=== PATIENT | female | born 1985 | race African-American/Black ===

== ENCOUNTER 2020-02-11 09:32 | Outpatient (CLI) | payer OTHER | END 2020-02-11 09:33 | disposition home or self-care (01) | LOC: LAB.N 09:32 | PROVIDERS: ATTEND Obstetrics & Gynecology | DX: Z13.29 Encounter for screening for other suspected endocrine disorder (principal) | CPT/HCPCS: 36415; 84443 ==

== ENCOUNTER 2020-02-19 15:19 | Outpatient (CLI) | payer OTHER ==
--- NOTE | 2020-02-19 16:48 | Ultrasound Report ---
PROCEDURE: Pelvic w/Transvaginal INDICATIONS: IUD CHECK TECHNIQUE: Real-time scanning was performed of the pelvic organs, with image documentation. Additional endovagi nal scanning was necessary due to incomplete visualization of the adnexal and endometrial structures by transabdominal scanning. COMPARISON: None. FINDINGS: Transabdominal scanning: Limited scanning through the kidneys shows no hydronephrosis. No pathologi c free abdominal or pelvic fluid. Endovaginal scanning: Uterus: Uterus is normal in size at 8.4 x 4.4 x 5.5 cm. The endometrium measures 12 mm in combined thickness. Within the anterior aspect of the lower uterine segment there is an 8 x 6 x 7 mm focus of heterogeneous echogenicity. Within the fundal anterior portion there is a similar focus measuring 8 x 9 x 7 mm. Nabothian cyst is noted. There is no visualized intrauterine device. Ovaries: Right ovary measures 37 x 18 x 21 mm. Left ovary measures 31 x 21 x 18 mm. Less than 12 fol licles are noted bilaterally. Ovaries demonstrate vascular flow. IMPRESSION: Foci of heterogeneous echogenicity as above suggestive of small fibroids. Reviewed by: Elida Villarreal MD on 02/19/2020 4:47 PM PST Approved by: Elida Villarreal MD on 02/19/2020 4:47 PM PST Station ID: [id number]
== END 2020-02-19 15:20 | disposition home or self-care (01) ==
LOC: DI 15:19
PROVIDERS: ATTEND Obstetrics & Gynecology
DX: R93.89 Abnormal findings on diagnostic imaging of other specified body structures (principal)
CPT/HCPCS: 76830; 76856

== ENCOUNTER 2020-02-26 17:08 | Outpatient (CLI) | payer OTHER ==
[2020-02-26 18:54] LABS: BILIRUBIN,URINE NEGATIVE (NEGATIVE); GLUCOSE, URINE (UA) NEGATIVE (NEGATIVE); KETONES,URINE (UA) NEGATIVE (NEGATIVE); LEUKOCYTE ESTERASE, URINE NEGATIVE (NEGATIVE); NITRITE,URINE NEGATIVE (NEGATIVE); OCCULT BLOOD,URINE NEGATIVE (NEGATIVE); PROTEIN,URINE NEGATIVE (NEGATIVE); UROBILINOGEN,URINE 0.2 (NORMAL) E.U./dL (NORMAL)
[2020-02-26 19:37] LABS: BACTERIA,URINE None Seen /HPF (None Seen); CLARITY,URINE CLEAR (CLEAR); RBC,URINE 0-5 /HPF (0-5); SQUAMOUS EPITHELIAL CELL,UR FEW Squamous (<= Few)
== END 2020-02-26 23:59 | disposition home or self-care (01) ==
LOC: LAB.R 17:08
PROVIDERS: ATTEND Nurse Practitioner Obstetrics & Gynecology
DX: Z32.01 Encounter for pregnancy test, result positive (principal)
CPT/HCPCS: 81001; 87086

== ENCOUNTER 2020-03-06 09:25 | Outpatient (CLI) | payer OTHER | END 2020-03-06 09:26 | disposition home or self-care (01) | LOC: LAB.N 09:25 | PROVIDERS: ATTEND Nurse Practitioner Obstetrics & Gynecology | DX: Z32.01 Encounter for pregnancy test, result positive (principal) | CPT/HCPCS: 36415; 84702 ==

== ENCOUNTER 2020-03-09 09:16 | Outpatient (CLI) | payer OTHER | END 2020-03-09 09:17 | disposition home or self-care (01) | LOC: LAB.N 09:16 | PROVIDERS: ATTEND Nurse Practitioner Obstetrics & Gynecology | DX: Z32.01 Encounter for pregnancy test, result positive (principal) | CPT/HCPCS: 36415; 84702; 84703 ==

== ENCOUNTER 2020-03-11 09:12 | Outpatient (CLI) | payer OTHER | END 2020-03-11 09:13 | disposition home or self-care (01) | LOC: LAB.N 09:12 | PROVIDERS: ATTEND Obstetrics & Gynecology | DX: Z32.01 Encounter for pregnancy test, result positive (principal) | CPT/HCPCS: 36415; 84702 ==

== ENCOUNTER 2020-03-14 16:28 | Outpatient (CLI) | payer OTHER ==
--- NOTE | 2020-03-14 20:33 | Ultrasound Report ---
PROCEDURE: OB First Trimester w/TV INDICATIONS: POSITIVE TEST OUTSIDE/PRIOR DATING DATA: Last menstrual period (LMP): 01/23/2020. LMP-based estimated date of delivery (MARY): 10/29/2020. First dating scan (date and location): 03/14/2020. Estimated date of delivery (MARY) from first dating scan: 10/28/2020. TECHNIQUE: Real-time scanning was performed of the fetus and maternal pelvic organs, with image documentation. Endovaginal scanning was also performed to better visualize the fetus and maternal ovaries. COMPARISON: Pelvic ultrasound 02/19/2020. FINDINGS: Embryo: [place]-rump length measuring 1.2 cm corresponding to 7 weeks 3 days gestational age. he art rate 161 BPM. A yolk sac is seen. No perigestational hemorrhage. Measurement variability in dating: +/- 4 weeks by LMP, +/- 7 days by mean sac diameter (use before 6 weeks gestation if crown-rump length not able to be measured), +/- 5 days by crown-rump length (6-12 weeks gestation). Maternal organs: Ovaries within normal limits. Right corpus luteum measuring 1.9 cm. Cervix is close d. Small cyst in the lower uterine segment anteriorly or cervix measuring 1.1 cm, similar the prior exam and possibly a nabothian cyst or fibroid. Trace fluid in the pelvic cul-de-sac. Limited images t hrough the kidneys demonstrate no hydronephrosis. IMPRESSION: 1. [place] living intrauterine at 7 weeks 3 days based on today's ultrasound crown-rump l ength. heart rate 161 bpm. 2. No perigestational hemorrhage. Reviewed by: Chuck Shearer MD on 03/14/2020 7:32 PM [facility] Approved by: Chuck Shearer MD on 03/14/2020 7:32 PM [facility] Station ID: [id number]
== END 2020-03-14 16:29 | disposition home or self-care (01) ==
LOC: DI 16:28
PROVIDERS: ATTEND Nurse Practitioner Obstetrics & Gynecology
DX: Z32.01 Encounter for pregnancy test, result positive (principal)

== ENCOUNTER 2020-03-23 08:00 | Outpatient (CLI) | payer OTHER ==
[2020-03-24 00:34] LABS: TRICHOMONAS VAGINALIS DNA NEGATIVE (NEGATIVE)
== END 2020-03-23 23:59 | disposition home or self-care (01) ==
LOC: LAB.WC 08:00
PROVIDERS: ATTEND Obstetrics & Gynecology
DX: Z36.89 Encounter for other specified antenatal screening (principal)
CPT/HCPCS: 87491; 87591; 87661

== ENCOUNTER 2020-03-23 08:00 | Outpatient (CLI) | payer OTHER ==
[2020-03-23 16:40] LABS: MUDS CUTOFF CONCENTRATIONS CUTOFF CONC BELOW:
[2020-03-23 17:01] LABS: AMPHETAMINE SCREEN,URINE NEGATIVE (NEGATIVE); BARBITURATE SCREEN,UR NEGATIVE (NEGATIVE); BENZODIAZEPINES SCREEN, URINE NEGATIVE (NEGATIVE); COCAINE SCREEN URINE NEGATIVE (NEGATIVE); METHADONE SCREEN, URINE NEGATIVE (NEGATIVE); METHAMPHETAMINES SCREEN, URINE NEGATIVE (NEGATIVE); OPIATE SCREEN, URINE NEGATIVE (NEGATIVE); OXYCODONE SCREEN, URINE NEGATIVE (NEGATIVE); PROPOXYPHENE SCREEN, URINE NEGATIVE (NEGATIVE); THC CANNABINOID SCREEN, URINE NEGATIVE (NEGATIVE); TRICYCLIC ANTIDEPRESSANT,URINE NEGATIVE (NEGATIVE)
== END 2020-03-23 23:59 | disposition home or self-care (01) ==
LOC: LAB.WC 08:00
PROVIDERS: ATTEND Obstetrics & Gynecology
DX: Z36.89 Encounter for other specified antenatal screening (principal)
CPT/HCPCS: 80306

== ENCOUNTER 2020-04-06 09:32 | Outpatient (CLI) | payer OTHER | END 2020-04-06 09:33 | disposition home or self-care (01) | LOC: LAB 09:32 | PROVIDERS: ATTEND Obstetrics & Gynecology | DX: Z01.89 Encounter for other specified special examinations (principal) | CPT/HCPCS: 36415 ==

== ENCOUNTER 2020-05-11 09:19 | Outpatient (CLI) | payer OTHER ==
[2020-05-11 12:07] LABS: BASOPHILS # (AUTO) 0.1 10^3/uL (0.0-0.1); BASOPHILS % (AUTO) 0.5 %; EOSINOPHILS # (AUTO) 0.2 10^3/uL (0.0-0.7); EOSINOPHILS % (AUTO) 1.2 %; HGB - HEMOGLOBIN 13.1 g/dL (12.0-16.0); LYMPHOCYTES % (AUTO) 16.6 %; MEAN CORPUSCULAR HEMOGLOBIN 34.2 pg (27.0-31.0); MEAN CORPUSCULAR HGB CONC 34.2 g/dL (32.0-36.0); MEAN PLATELET VOLUME 10.7 fL (7.9-10.8); MONOCYTES # (AUTO) 0.7 10^3/uL (0.0-1.0); MONOCYTES % (AUTO) 5.5 %; NEUTROPHILS % (AUTO) 74.7 %; PLT - PLATELET COUNT 264 10^3/uL (130-450); RED BLOOD COUNT 3.83 10^6/uL (4.20-5.40); RED CELL DISTRIBUTION WIDTH 12.6 % (12.0-15.0)
[2020-05-12 11:47] LABS: HEPATITIS B SURFACE ANTIGEN NON-REACTIVE (NON-REACTIVE); HEPATITIS C ANTIBODY NON-REACTIVE (NON-REACTIVE)
[2020-05-12 14:22] LABS: HIV AG/AB 4TH GEN NON-REACTIVE (NON-REACTIVE)
== END 2020-05-11 09:20 | disposition home or self-care (01) ==
LOC: LAB.N 09:19
PROVIDERS: ATTEND Obstetrics & Gynecology
DX: O09.519 Supervision of elderly primigravida, unspecified trimester (principal); Z36.89 Encounter for other specified antenatal screening; Z3A.00 Weeks of gestation of pregnancy not specified
CPT/HCPCS: 36415; 81599; 82105; 85025; 86592; 86762; 86787; 86803; 86850; 86900; 86901; 87340; 87389

== ENCOUNTER 2020-06-10 13:46 | Outpatient (CLI) | payer OTHER ==
--- NOTE | 2020-06-10 17:02 | Ultrasound Report ---
PROCEDURE: OB Detailed Eval INDICATIONS: SCREENING OUTSIDE/PRIOR DATING DATA: Last menstrual period (LMP): 01/23/2020. LMP-based estimated date of delivery (MARY): 10/29/2020. First dating scan (date and location): 03/14/2020. Estimated date of delivery (MARY) from first dating scan: 12/29/2020. TECHNIQUE: Real-time scanning was performed of the fetus, with image documentation and biometric measurements. COMPARISON: OB ultrasound 03/14/2020 FINDINGS: General: A single living intrauterine gestation is present. Presentation: Variable Placenta: Placental position is anterior, with appearance of mild previa.. Amniotic fluid index: 18.7 cm, within normal limits for gestational age. Largest pocket measures 6 cm. heart rate: 145 beats per minute. Maternal cervical canal: 4.9 cm long; normal length is 2.5 cm or more. biometrics: Biparietal diameter: 4.8 cm 20 weeks 4 days Head circumference: 17.5 cm 20 weeks 0 days Abdominal circumference: 14.9 cm 20 weeks 1 day Femur length: 3.2 cm 19 weeks 6 days Estimated gestational age from initial scan: 19 weeks 6 days Composite gestational age from present scan: 19 weeks 6 days Estimated weight and percentile: 327 g 55th percentile Measurement variability in biometric dating: +/- 10 days from 12-20 weeks gestation, +/- 2 weeks from 20-30 weeks gestation, +/- 3 weeks at 30 weeks gestation or later. Anatomic survey: Neuro: Ventricles are normal at less than 10 mm. Cisterna magna is normal at 3-11 mm. Cerebellum i s normal in size and morphology. Nuchal skin fold: Normal at less than 6 mm between 14 and 20 weeks gestational age. Face: Nose and lips, facial profile are normal. Spine: No evidence for spina bifida. Heart: 4-chambered heart is present, with normal ventricular outflow tracts. Diaphragm: Diaphragm is intact. Stomach: Left-sided stomach is present. Kidneys: No hydronephrosis. Normal is less than 5 mm in 2nd trimester, less than 7 mm in 3rd trimester. Cord: 3 vessel cord has orthotopic insertion. Bladder: Normal in size. Extremities: All 4 extremities are visualized. IMPRESSION: 1. Single live intrauterine with ultrasound gestational age of 19 weeks 6 days. 2. There is an appearance of previa noted of the anterior placenta. However, evaluation is somewhat l imited secondary to transverse lie of the fetus. Short interval imaging follow-up is recommended for further evaluation. Reviewed by: Elida Villarreal MD on 06/10/2020 5:01 PM PST Approved by: Elida Villarreal MD on 06/10/2020 5:01 PM [facility] Station ID: [id number]
== END 2020-06-10 13:47 | disposition home or self-care (01) ==
LOC: DI 13:46
PROVIDERS: ATTEND Obstetrics & Gynecology
DX: Z36.89 Encounter for other specified antenatal screening (principal)

== ENCOUNTER 2020-07-09 09:34 | Outpatient (CLI) | payer OTHER ==
--- NOTE | 2020-07-09 12:38 | Ultrasound Report ---
PROCEDURE: OB F/U or Repeat INDICATIONS: LOW LYING PLACENTA OUTSIDE/PRIOR DATING DATA: Last menstrual period (LMP): 01/23/2020. LMP-based estimated date of delivery (MARY): 10/29/2020. First dating scan (date and location): 03/14/2020. Estimated date of delivery (MARY) from first dating scan: 10/28/2020. Established MARY per provider 10/29/2020 TECHNIQUE: Real-time scanning was performed of the fetus, with image documentation and biometric measurements. Endovaginal scanning: Not performed COMPARISON: 03/14/2020, 06/10/2020 FINDINGS: General: A single living intrauterine gestation is present. Presentation: Vertex Placenta: Placental position is anterior, without previa. Placental edge is 4.8 cm from the interna l cervical os. Amniotic fluid index: 15.7 cm, normal for gestational age. Deepest pocket is 5.0 cm. heart rate: 160 beats per minute. Maternal cervical canal: 3.6 cm long; normal length is 2.5 cm or more. IMPRESSION: 1. Single living intrauterine . 2. Anterior placenta without previa. 3. Normal amniotic fluid volume and closed cervix. Reviewed by: Rizwana Camara MD on 07/09/2020 11:37 AM [facility] Approved by: Rizwana Camara MD on 07/09/2020 11:37 AM [facility] Station ID: [id number]
== END 2020-07-09 09:35 | disposition home or self-care (01) ==
LOC: DI 09:34
PROVIDERS: ATTEND Obstetrics & Gynecology
DX: O44.00 Complete placenta previa NOS or without hemorrhage, unspecified trimester (principal); Z3A.00 Weeks of gestation of pregnancy not specified

== ENCOUNTER 2020-08-06 10:04 | Outpatient (CLI) | payer OTHER ==
[2020-08-06 11:10] LABS: HCT - HEMATOCRIT 35.4 % (37.0-47.0); HGB - HEMOGLOBIN 12.2 g/dL (12.0-16.0); MEAN CORPUSCULAR HGB CONC 34.5 g/dL (32.0-36.0); MEAN CORPUSCULAR VOLUME 101.4 fL (81.0-99.0); MEAN PLATELET VOLUME 9.7 fL (7.9-10.8); RED BLOOD COUNT 3.49 10^6/uL (4.20-5.40); RED CELL DISTRIBUTION WIDTH 12.4 % (12.0-15.0); WHITE BLOOD COUNT 14.4 x10^3/uL (4.8-10.8)
== END 2020-08-06 10:05 | disposition home or self-care (01) ==
LOC: LAB 10:04
PROVIDERS: ATTEND Obstetrics & Gynecology
DX: Z36.89 Encounter for other specified antenatal screening (principal)
CPT/HCPCS: 36415; 82950; 85027

== ENCOUNTER 2022-01-21 14:25 | Outpatient (CLI) | payer OTHER ==
[2022-01-21 14:46] LABS: BASOPHILS # (AUTO) 0.1 10^3/uL (0.0-0.1); BASOPHILS % (AUTO) 0.5 %; EOSINOPHILS # (AUTO) 0.2 10^3/uL (0.0-0.7); EOSINOPHILS % (AUTO) 1.6 %; HCT - HEMATOCRIT 39.5 % (37.0-47.0); HGB - HEMOGLOBIN 13.1 g/dL (12.0-16.0); LYMPHOCYTES # (AUTO) 3.3 10^3/uL (1.5-3.5); LYMPHOCYTES % (AUTO) 26.9 %; MEAN CORPUSCULAR HEMOGLOBIN 32.6 pg (27.0-31.0); MEAN CORPUSCULAR HGB CONC 33.2 g/dL (32.0-36.0); MEAN CORPUSCULAR VOLUME 98.3 fL (81.0-99.0); MEAN PLATELET VOLUME 9.9 fL (7.9-10.8); MONOCYTES # (AUTO) 0.8 10^3/uL (0.0-1.0); MONOCYTES % (AUTO) 6.2 %; NEUTROPHILS # (AUTO) 7.8 10^3/uL (1.5-6.6); NEUTROPHILS % (AUTO) 64.2 %; PLT - PLATELET COUNT 267 10^3/uL (130-450); RED BLOOD COUNT 4.02 10^6/uL (4.20-5.40); RED CELL DISTRIBUTION WIDTH 12.8 % (12.0-15.0); WHITE BLOOD COUNT 12.1 x10^3/uL (4.8-10.8)
[2022-01-21 15:19] LABS: CLARITY,URINE CLEAR (CLEAR); KETONES,URINE (UA) NEGATIVE (NEGATIVE); LEUKOCYTE ESTERASE, URINE NEGATIVE (NEGATIVE); NITRITE,URINE NEGATIVE (NEGATIVE); OCCULT BLOOD,URINE NEGATIVE (NEGATIVE); PROTEIN,URINE NEGATIVE (NEGATIVE); UROBILINOGEN,URINE 0.2 (NORMAL) E.U./dL (NORMAL)
[2022-01-21 15:20] LABS: BACTERIA,URINE Rare /HPF (None Seen); BILIRUBIN,URINE NEGATIVE (NEGATIVE); GLUCOSE, URINE (UA) NEGATIVE (NEGATIVE); RBC,URINE 0-5 /HPF (0-5); SQUAMOUS EPITHELIAL CELL,UR FEW Squamous (<= Few); WBC,URINE 0-3 /HPF (0-5)
[2022-01-22 03:08] LABS: HBsAG SCREEN Negative (Negative); HCV AB <0.1 s/co ratio (0.0-0.9); HIV SCREEN 4TH GENERATION Non Reactive (Non Reactive)
[2022-01-22 07:08] LABS: RPR Non Reactive (Non Reactive)
[2022-01-22 10:08] LABS: VARICELLA-ZOSTER AB IGG 740 index (Immune >165)
== END 2022-01-21 14:26 | disposition home or self-care (01) ==
LOC: LAB 14:25
PROVIDERS: ATTEND Nurse Practitioner
DX: Z34.80 Encounter for supervision of other normal pregnancy, unspecified trimester (principal)
CPT/HCPCS: 36415; 81001; 85025; 86592; 86762; 86787; 86803; 86850; 86900; 86901; 87086; 87340; 87389

== ENCOUNTER 2022-01-26 09:46 | Outpatient (CLI) | payer OTHER ==
--- NOTE | 2022-01-26 11:01 | Ultrasound Report ---
PROCEDURE: OB First Trimester w/TV INDICATIONS: POSITIVE TEST OUTSIDE/PRIOR DATING DATA: Last menstrual period (LMP): 11/28/2021. LMP-based estimated date of delivery (MARY): 09/16/2022. First dating scan (date and location): 01/26/2022. Estimated date of delivery (MARY) from first dating scan: 09/16/2022. The below data below was generated using the ultrasound MARY of 09/16/2022 TECHNIQUE: Real-time scanning was performed of the fetus and maternal pelvic organs, with image documentation. Endovaginal scanning was also performed to better visualize the fetus and maternal ovaries. COMPARISON: None FINDINGS: Embryo: Early intrauterine with crown-rump length of 0.8 cm, 6 weeks 5 days. Heart rate: No cardiac activity identified. Measurement variability in dating: +/- 4 weeks by LMP, +/- 7 days by mean sac diameter (use before 6 weeks gestation if crown-rump length not able to be measured), +/- 5 days by crown-rump length (6-12 weeks gestation). Maternal organs: Ovaries are within normal limits. IMPRESSION: 1. Very early intrauterine with crown-rump length without a heartbeat. Comment: Recommend correlation with serial beta hCGs and consideration of possible follow-up ultrasou nd in 1 week. Above discussed with MARIANNE Figueroa at the time of dictation on 01/26/2022 at 1058 hours. Reviewed by: Sander Fowler MD on 01/26/2022 11:00 AM PDT Approved by: Sander Fowler MD on 01/26/2022 11:00 AM PDT Station ID: [id number]
== END 2022-01-26 09:47 | disposition home or self-care (01) ==
LOC: DI 09:46
PROVIDERS: ATTEND Nurse Practitioner
DX: Z34.81 Encounter for supervision of other normal pregnancy, first trimester (principal); Z3A.01 Less than 8 weeks gestation of pregnancy

== ENCOUNTER 2022-01-27 11:07 | Outpatient (CLI) | payer OTHER | END 2022-01-27 11:08 | disposition home or self-care (01) | LOC: LAB.N 11:07 | PROVIDERS: ATTEND Obstetrics & Gynecology | DX: Z32.01 Encounter for pregnancy test, result positive (principal) | CPT/HCPCS: 36415; 84702 ==

== ENCOUNTER 2022-01-29 10:55 | Outpatient (CLI) | payer OTHER | END 2022-01-29 10:56 | disposition home or self-care (01) | LOC: LAB.N 10:55 | PROVIDERS: ATTEND Obstetrics & Gynecology | DX: Z32.01 Encounter for pregnancy test, result positive (principal) | CPT/HCPCS: 36415; 84702 ==

== ENCOUNTER 2022-02-01 10:24 | Day surgery (SDC) | payer OTHER ==
[2022-02-01] MEDS ORDERED: LACTATED RINGERS 1,000 ML IV ONE ×2 (10:47→13:55)
[2022-02-01] MEDS ORDERED: fentaNYL 100 MCG/2 ML VIAL IVP PRN (11:36)
[2022-02-01] MEDS ORDERED: ePHEDrine 50 MG/ML VIAL IVP PRN (11:36)
[2022-02-01] MEDS ORDERED: NALOXONE 0.4 MG/ML VIAL IVP PRN (11:36)
[2022-02-01] MEDS ORDERED: ONDANSETRON 4 MG/2 ML VIAL IVP PRN ×2 (11:36→13:50)
[2022-02-01] MEDS ORDERED: MORPHINE 2 MG/ML CARPUJECT IVP PRN (11:36)
[2022-02-01] MEDS ORDERED: METOCLOPRAMIDE 10 MG/2 ML VIAL IVP PRN (11:36)
[2022-02-01] MEDS ORDERED: ATROPINE ABBOJECT 1 MG/10 ML SYRINGE IVP PRN (11:36)
[2022-02-01] MEDS ORDERED: HYDROmorphone 0.5 MG/0.5 ML SYRINGE IVP PRN (11:36)
--- NOTE | 2022-02-01 11:36 | ANESTHESIA ---
Pre-Anesthesia VS, & Labs - Diagnosis missed ab - Procedure suction D&C Vital Signs: Temp Pulse Resp BP Pulse Ox O2 Flow Rate 36.4 C L 73 14 126/80 100 02/01/22 10:42 02/01/22 10:42 02/01/22 10:42 02/01/22 10:42 02/01/22 10:42 Height: 4 ft 11 in Weight (kg): 57 kg Body Mass Index: 25.3 BMI Classification: Overweight - NPO >8 hours - Is Patient ?: Yes Comments:: missed ab Home Medications and Allergies No122/Iron/Folic Acid [ Multi Tablet] 1 each PO DAILY 11/30/16 Allergies/Adverse Reactions: Allergies Allergy/AdvReac Type Severity Reaction Status Date / Time No Known Drug Allergies Allergy Verified 11/30/16 06:31 Anes History & Medical History - Anesthetic History Anesthesia Complications: reports: No previous complications Family history of Anesthesia Complications: Denies Family history of Malignant Hyperthermia: Denies - Medical History Cardiovascular: reports: None Pulmonary: reports: None Gastrointestinal: reports: None Urinary: reports: None Musculoskeletal: reports: None Endocrine/Autoimmune: reports: None Skin: reports: None Smoking Status: Never smoker - Surgical History Gynecologic: reports: section, Other Exam General: Alert, Oriented x3, Cooperative Dental: WNL Mouth Openin Fingerbreadth Neck Mobility: Normal Mallampati classification: I Thyromental Distance: 4-6 cm Respiratory: Lungs clear Cardiovascular: Regular rate Plan Anesthesia Type: General Consent for Procedure(s) Verified and Reviewed: Yes Code Status: Attempt Resuscitation ASA classification: 1-Healthy patient Is this case an emergency?: No
[2022-02-01] MEDS ORDERED: LACTATED RINGERS 1,000 ML IV SCH (12:00)
[2022-02-01] MEDS ORDERED: LIDOCAINE MPF 2%-EPI 1:200000 20 ML VIAL ONE (12:28)
[2022-02-01] MEDS ORDERED: LIDOCAINE 2%-EPI 1:100000 20 ML MDV SUBQ ONE (12:31)
[2022-02-01] MEDS ORDERED: DOXYCYCLINE 100 MG TABLET PO ONE (12:36)
[2022-02-01 12:57] LABS: BASOPHILS % (AUTO) 0.4 %; EOSINOPHILS # (AUTO) 0.1 10^3/uL (0.0-0.7); EOSINOPHILS % (AUTO) 1.2 %; HGB - HEMOGLOBIN 11.8 g/dL (12.0-16.0); LYMPHOCYTES # (AUTO) 2.9 10^3/uL (1.5-3.5); LYMPHOCYTES % (AUTO) 28.7 %; MEAN CORPUSCULAR HEMOGLOBIN 32.2 pg (27.0-31.0); MEAN CORPUSCULAR HGB CONC 32.8 g/dL (32.0-36.0); MEAN CORPUSCULAR VOLUME 98.4 fL (81.0-99.0); MEAN PLATELET VOLUME 9.9 fL (7.9-10.8); MONOCYTES # (AUTO) 0.6 10^3/uL (0.0-1.0); NEUTROPHILS # (AUTO) 6.5 10^3/uL (1.5-6.6); NEUTROPHILS % (AUTO) 63.1 %; PLT - PLATELET COUNT 253 10^3/uL (130-450); RED BLOOD COUNT 3.66 10^6/uL (4.20-5.40); RED CELL DISTRIBUTION WIDTH 12.8 % (12.0-15.0); WHITE BLOOD COUNT 10.3 x10^3/uL (4.8-10.8)
[2022-02-01] MEDS ORDERED: ONDANSETRON 4 MG/2 ML VIAL ONE ×2 (12:59→15:06)
[2022-02-01] MEDS ORDERED: MIDAZOLAM 2 MG/2 ML VIAL ONE (12:59)
[2022-02-01] MEDS ORDERED: PROPOFOL 200 MG/20 ML VIAL IVP ONE (12:59)
[2022-02-01] MEDS ORDERED: DEXAMETHASONE 4 MG/ML VIAL ONE (12:59)
[2022-02-01] MEDS ORDERED: fentaNYL 100 MCG/2 ML VIAL ONE (12:59)
[2022-02-01] MEDS ORDERED: SILVER NITRATE APPLICATOR TOP ONE ×2 (13:43→13:45)
[2022-02-01] MEDS ORDERED: HYDROcod/ACETAM 10 MG/325 MG TABLET PO PRN (13:49)
--- NOTE | 2022-02-01 13:53 | OPERATIVE REPORT ---
Operative Report - General Procedure Date: 02/01/22 Planned Procedure: Suction Dilation and curettage Pre-Op Diagnosis: Missed Procedure Performed: Suction dilation and curettage Post Op Diagnosis: Status post suction dilation and curettage - Procedure Note Primary Surgeon: Antwon Pat MD Secondary Surgeon: MARIANNE Maya Anesthesia Provider: Leti Barrios CRNA Anesthesia Technique: General ET tube Pathology: Products of conception IV Fluids (mL): 800 Estimated Blood Loss (mL): 75 Complications: None - Other Other Information/Narrative: Patient was managed for missed after Ultrasound showed no acute cardiac activity in her fetus despite adequate size. She had a falling hCG that confirmed this for the patient. She was counseled on the risk, benefits, and alternatives of suction D&C including expectant management medical management. She agreed and desired surgical management. Suction D&C Prior to the procedure, patient received 200 mg of oral doxycycline. Patient was placed in the dorsal high lithotomy position with great white stirrups, and general anesthesia was obtained without difficulty. The pelvis was prepped and the patient was draped in the usual fashion. Careful pelvic examination is performed to locate the position of the uterus and noted mild dilation of the cervical os. A bivalve speculum was placed in the vagina and the cervix was grasped with a single-tooth tenaculum and gently drawn towards the vaginal outlet. The cervix was noted to be dilated and allowed easy passage of up to an 8 mm dilator. A 7 mm rigid suction catheter was used for suction. Under ultrasound guidance, A hypoechoic cystic structure appearing like a gestational sac was seen with no pole. the catheter was placed without suction into the uterine cavity using ultrasound guidance. Blood and products of conception were collected in the section catheter container after suction was initiated. After adequate removal of products, a sharp curette was used to remove additional products of conception adherent to uterine nunez. The products were collected on a Telfa pad. After removing products of conception and feeling circumferential uterine cri, adequate hemostasis was noted from coming from the uterus and the tenaculum was removed. Bleeding from the tenaculum sites was stopped with silver nitrate.. Upon examination the patient was hemostatic and all instruments were removed. Patient was returned to dorsal supine position and awoke from anesthesia. She was taken to the PACU in good condition.
[2022-02-01] MEDS ORDERED: DOXYCYCLINE INJ 100 MG in SODIUM CHLORIDE 0.9% MINIBAG 100 ML IV ONE (14:00)
[2022-02-01] MEDS ORDERED: ACETAMINOPHEN 500 MG TABLET PO PRN (14:43)
[2022-02-01 14:49] VITALS: BP 117/84
[2022-02-01] MEDS ORDERED: IBUPROFEN 600 MG TABLET PO SCH (15:00)
--- NOTE | 2022-02-01 15:29 | ANESTHESIA POST OP EVALUATION ---
Anesthesia Post Eval - Post Anesthesia Eval Vitals: Last Vital Signs Temp 37 C 02/01/22 14:26 Pulse 83 02/01/22 14:48 Resp 15 02/01/22 14:48 BP 117/84 H 02/01/22 14:48 Pulse Ox 100 02/01/22 14:48 O2 Flow Rate CV Function Including HR & BP: Stable Pain Control: Satisfactory Nausea & Vomiting: Negative Mental Status: Baseline Respiratory Status: Airway Patent Hydration Status: Satisfactory Anesthesia Complications: None
== END 2022-02-01 10:25 | disposition home or self-care (01) ==
LOC: SDS 10:24
PROVIDERS: ATTEND Obstetrics & Gynecology
PROC: 10E0XZZ Delivery of Products of Conception, External Approach (ICD-10-PCS; principal; 2022-02-01 12:00)
DX: O02.1 Missed abortion (principal)
CPT/HCPCS: 36415; 59820; 85025; A9270; J7120

== ENCOUNTER 2022-02-28 12:58 | Outpatient (CLI) | payer OTHER | END 2022-02-28 12:59 | disposition home or self-care (01) | LOC: LAB.N 12:58 | PROVIDERS: ATTEND Obstetrics & Gynecology | DX: N93.9 Abnormal uterine and vaginal bleeding, unspecified (principal) | CPT/HCPCS: 36415; 84702 ==

== ENCOUNTER 2022-06-20 12:29 | Outpatient (CLI) | payer OTHER | END 2022-06-20 12:30 | disposition home or self-care (01) | LOC: LAB 12:29 | PROVIDERS: ATTEND Obstetrics & Gynecology | DX: N93.9 Abnormal uterine and vaginal bleeding, unspecified (principal) | CPT/HCPCS: 36415; 84702 ==

== ENCOUNTER 2022-06-21 09:07 | Outpatient (CLI) | payer OTHER | END 2022-06-21 09:08 | disposition home or self-care (01) | LOC: LAB.N 09:07 | PROVIDERS: ATTEND Obstetrics & Gynecology | DX: N93.9 Abnormal uterine and vaginal bleeding, unspecified (principal) | CPT/HCPCS: 36415; 84702 ==

== ENCOUNTER 2023-11-03 10:45 | Outpatient (CLI) | payer OTHER ==
[2023-11-03 17:50] LABS: BASOPHILS # (AUTO) 0.1 10^3/uL (0.0-0.1); BASOPHILS % (AUTO) 0.4 %; EOSINOPHILS # (AUTO) 0.2 10^3/uL (0.0-0.7); EOSINOPHILS % (AUTO) 1.7 %; HGB - HEMOGLOBIN 12.6 g/dL (12.0-16.0); LYMPHOCYTES # (AUTO) 2.5 10^3/uL (1.5-3.5); LYMPHOCYTES % (AUTO) 21.7 %; MEAN CORPUSCULAR HEMOGLOBIN 32.6 pg (27.0-31.0); MEAN CORPUSCULAR HGB CONC 32.3 g/dL (32.0-36.0); MEAN CORPUSCULAR VOLUME 100.8 fL (81.0-99.0); MONOCYTES # (AUTO) 0.7 10^3/uL (0.0-1.0); MONOCYTES % (AUTO) 6.2 %; NEUTROPHILS # (AUTO) 7.9 10^3/uL (1.5-6.6); NEUTROPHILS % (AUTO) 69.3 %; PLT - PLATELET COUNT 260 10^3/uL (130-450); RED BLOOD COUNT 3.87 10^6/uL (4.20-5.40); RED CELL DISTRIBUTION WIDTH 12.9 % (12.0-15.0); WHITE BLOOD COUNT 11.4 x10^3/uL (4.8-10.8)
[2023-11-03 18:16] LABS: CREATININE,URINE 238.9 mg/dL; PROTEIN/CREATININE RATIO,URINE 0.1 (<=0.2)
[2023-11-04 05:13] LABS: HBsAG SCREEN Negative (Negative); RPR Non Reactive (Non Reactive)
[2023-11-04 07:09] LABS: VARICELLA-ZOSTER AB IGG 776 index (Immune >165)
[2023-11-05 03:38] LABS: HCV AB Non Reactive (Non Reactive)
[2023-11-05 08:08] LABS: HIV SCREEN 4TH GENERATION Non Reactive (Non Reactive)
== END 2023-11-03 11:00 | disposition home or self-care (01) ==
LOC: LAB.N 10:45
PROVIDERS: ATTEND Obstetrics & Gynecology
DX: Z34.90 Encounter for supervision of normal pregnancy, unspecified, unspecified trimester (principal)
CPT/HCPCS: 36415; 81001; 82570; 84156; 85025; 86592; 86762; 86787; 86803; 86850; 86900; 86901; 87086; 87340; 87389

== ENCOUNTER 2023-11-03 12:24 | Outpatient (CLI) | payer OTHER ==
[2023-11-03 12:41] LABS: BILIRUBIN,URINE NEGATIVE (NEGATIVE); GLUCOSE, URINE (UA) NEGATIVE (NEGATIVE); KETONES,URINE (UA) NEGATIVE (NEGATIVE); LEUKOCYTE ESTERASE, URINE TRACE (NEGATIVE); NITRITE,URINE NEGATIVE (NEGATIVE); OCCULT BLOOD,URINE NEGATIVE (NEGATIVE); PROTEIN,URINE NEGATIVE (NEGATIVE); UROBILINOGEN,URINE 0.2 (NORMAL) E.U./dL (NORMAL)
[2023-11-03 12:45] LABS: CLARITY,URINE CLOUDY (CLEAR)
[2023-11-03 12:53] LABS: AMORPHOUS SEDIMENT,UR Marked /LPF; BACTERIA,URINE Rare /HPF (None Seen); CRYSTALS,URINE 0-2 Calcium Oxalate /LPF; RBC,URINE None Seen /HPF (0-5); SQUAMOUS EPITHELIAL CELL,UR RARE Squamous (<= Few); WBC,URINE 0-3 /HPF (0-5)
== END 2023-11-03 12:25 | disposition home or self-care (01) ==
LOC: LAB.WC 12:24
PROVIDERS: ATTEND Obstetrics & Gynecology
DX: Z34.90 Encounter for supervision of normal pregnancy, unspecified, unspecified trimester (principal)
CPT/HCPCS: 81001; 87086

== ENCOUNTER 2023-11-14 19:32 | Outpatient (CLI) | payer OTHER ==
--- NOTE | 2023-11-15 23:31 | Ultrasound Report ---
PROCEDURE: OB 1st Trimester INDICATIONS: POSITIVE TEST OUTSIDE/PRIOR DATING DATA: Last menstrual period (LMP): 08/24/2023. LMP-based estimated date of delivery (MARY): 05/30/2024. First dating scan (date and location): 11/14/2023. Estimated date of delivery (MARY) from first dating scan: 05/29/2024. TECHNIQUE: Real-time scanning was performed of the fetus and maternal pelvic organs, with image documentation. COMPARISON: None. FINDINGS: Intrauterine gestational sac present. Embryo: [place]-rump length measures 5.07 cm. Estimated gestational age is 11 weeks, 6 days, 38.6% Heart rate: 158 bpm. Other: Subchorionic hematoma measures 2.4 x 1.8 x 2.3 cm in size. Measurement variability in dating: +/- 4 weeks by LMP, +/- 7 days by mean sac diameter (use before 6 weeks gestation if crown-rump length not able to be measured), +/- 5 days by crown-rump length (6-12 weeks gestation). Maternal organs: Ovaries appear within normal limits. Corpus luteum is noted in right ovary and bernard ures 1.6 x 1.8 x 1.3 cm in size. 2 small intramural uterine fibroids are noted measures 1.1 x 0.9 x 1 cm and 1.6 x 0.8 x 1.3 cm in size. IMPRESSION: 1. Single live intrauterine gestation with fetus seen. heart rate is 158 bpm. Estimated gestati onal age is 11 weeks, 6 days. 2. Small subchorionic hematoma measures 2.4 x 1.8 x 2.3 cm in size. 3. 2 tiny intramural fibroids as above. 4. Right corpus luteal cyst measures 1.6 x 1.3 x 1.8 cm in size. Reviewed by: Arnulfo Goyal MD on 11/15/2023 11:30 PM PDT Approved by: Arnulfo Goyal MD on 11/15/2023 11:30 PM PDT Station ID: [id number]
== END 2023-11-14 19:33 | disposition home or self-care (01) ==
LOC: DI 19:32
PROVIDERS: ATTEND Obstetrics & Gynecology
DX: O20.8 Other hemorrhage in early pregnancy (principal); O34.11 Maternal care for benign tumor of corpus uteri, first trimester; D25.1 Intramural leiomyoma of uterus; O34.81 Maternal care for other abnormalities of pelvic organs, first trimester; N83.11 Corpus luteum cyst of right ovary; Z3A.11 11 weeks gestation of pregnancy

== ENCOUNTER 2023-11-15 13:21 | Outpatient (CLI) | payer OTHER | END 2023-11-15 13:22 | disposition home or self-care (01) | LOC: LAB 13:21 | PROVIDERS: ATTEND Obstetrics & Gynecology | DX: O09.521 Supervision of elderly multigravida, first trimester (principal) ==

== ENCOUNTER 2023-11-28 08:00 | Outpatient (CLI) | payer OTHER ==
[2023-11-28 20:57] LABS: CHLAMYDIA TRACHOMATIS DNA NEGATIVE (NEGATIVE); NEISSERIA GONORRHOEAE DNA NEGATIVE (NEGATIVE); TRICHOMONAS VAGINALIS DNA NEGATIVE (NEGATIVE)
== END 2023-11-28 23:59 | disposition home or self-care (01) ==
LOC: LAB.WC 08:00
PROVIDERS: ATTEND Obstetrics & Gynecology
DX: Z11.3 Encounter for screening for infections with a predominantly sexual mode of transmission (principal)
CPT/HCPCS: 87491; 87591; 87661

== ENCOUNTER 2023-11-30 11:20 | Outpatient (CLI) | payer OTHER ==
[2023-11-30 11:42] LABS: ALBUMIN 3.8 g/dL (3.2-5.5); ALBUMIN/GLOBULIN RATIO 1.2 (1.0-2.2); ALKALINE PHOSPHATASE 39 IU/L (42-121); ALT ALANINE AMINOTRANSFERASE 12 IU/L (10-60); AST ASPARTATE AMINOTRANSFERASE 15 IU/L (10-42); BILIRUBIN,TOTAL 0.3 mg/dL (0.2-1.0); BUN - BLOOD UREA NITROGEN 10 mg/dL (6-20); CALCIUM 9.1 mg/dL (8.5-10.3); CARBON DIOXIDE - CO2 25 mmol/L (21-32); CHLORIDE 100 mmol/L (101-111); CREATININE 0.7 mg/dL (0.6-1.3); GFR - MDRD 114 (>89); GLUCOSE 70 mg/dL (74-104); POTASSIUM 3.6 mmol/L (3.5-4.5); SODIUM 131 mmol/L (135-145); TOTAL PROTEIN 7.1 g/dL (6.4-8.9)
[2023-11-30 12:06] LABS: ESTIMATED AVERAGE GLUCOSE 91 mg/dL (70-100); HEMOGLOBIN A1c% 4.8 % (4.27-6.07)
== END 2023-11-30 11:21 | disposition home or self-care (01) ==
LOC: LAB 11:20
PROVIDERS: ATTEND Obstetrics & Gynecology
DX: O09.521 Supervision of elderly multigravida, first trimester (principal); O99.111 Other diseases of the blood and blood-forming organs and certain disorders involving the immune mechanism complicating pregnancy, first trimester; D75.89 Other specified diseases of blood and blood-forming organs
CPT/HCPCS: 36415; 80053; 82607; 82746; 83036

== ENCOUNTER 2023-12-25 08:00 | Outpatient (CLI) | payer OTHER ==
[2023-12-25 23:25] LABS: BACTERIAL VAGINOSIS DNA NEGATIVE (NEGATIVE); CANDIDA GLABRATA DNA NEGATIVE (NEGATIVE); CANDIDA GROUP DNA NEGATIVE (NEGATIVE); CANDIDA KRUSEI DNA NEGATIVE (NEGATIVE); TRICHOMONAS VAGINALIS DNA NEGATIVE (NEGATIVE)
== END 2023-12-25 23:59 | disposition home or self-care (01) ==
LOC: LAB.WC 08:00
PROVIDERS: ATTEND Obstetrics & Gynecology
DX: O26.859 Spotting complicating pregnancy, unspecified trimester (principal)
CPT/HCPCS: 81514